=== PATIENT | female | born 1960 | race Caucasian/White ===

== ENCOUNTER → 2017-03-13 | Outpatient (CLI) | payer OTHER ==
[~2017-03-13] MED LIST: ASP81TEC; HCT25T; MTP100TCR; PNT40TEC; WARF4TAB; ZLP10T
--- NOTE | 2017-03-13 14:37 | Diagnostic Imaging Report ---
INDICATION: Cough and fever. PA and lateral chest. FINDINGS: Heart size and pulmonary vascularity are normal. Lungs are clear. There are no effusions or pneumothoraces. IMPRESSION: Negative chest. Dictated by: Dictated on workstation # [id number]
== END ==
LOC: RAD 14:04
PROVIDERS: ATTEND Internal Medicine
DX: J18.9 Pneumonia, unspecified organism (principal)
CPT/HCPCS: 71020

== ENCOUNTER → 2017-09-03 | Outpatient (CLI) | payer OTHER | LOC: RAD 10:10 | PROVIDERS: ATTEND Obstetrics & Gynecology | DX: Z12.31 Encounter for screening mammogram for malignant neoplasm of breast (principal) | CPT/HCPCS: 77067 ==

== ENCOUNTER → 2017-12-01 | Outpatient (CLI) | payer OTHER | LOC: CARD 08:23 | PROVIDERS: ATTEND Internal Medicine | DX: R00.2 Palpitations (principal) | CPT/HCPCS: 93225; 93226 ==

== ENCOUNTER 2018-04-06 13:01 | Outpatient (RCR) | payer OTHER | END 2018-04-27 12:52 | disposition home or self-care (01) | PROVIDERS: ATTEND Orthopaedic Surgery | DX: M75.02 Adhesive capsulitis of left shoulder (principal) ==

== ENCOUNTER → 2018-10-29 | Outpatient (CLI) | payer OTHER | LOC: RAD 11:19 | PROVIDERS: ATTEND Obstetrics & Gynecology | DX: Z12.31 Encounter for screening mammogram for malignant neoplasm of breast (principal) | CPT/HCPCS: 77067 ==

== ENCOUNTER → 2018-12-04 | Outpatient (CLI) | payer OTHER ==
--- NOTE | 2018-12-04 09:31 | Diagnostic Imaging Report ---
PROCEDURE: US Gallbladder. TECHNIQUE: Multiple Real-time grayscale images were obtained over the right upper quadrant in various projections. INDICATION: Right upper quadrant pain. FINDINGS: The liver is normal in size at 14.4 cm. No discrete liver mass is identified. The gallbladder is without stones or sludge. No wall thickening or biliary ductal dilatation is seen. The pancreas is unremarkable. The right kidney is unremarkable. There is no ascites. IMPRESSION: Unremarkable gallbladder ultrasound. Dictated by: Dictated on workstation # [id number]
== END ==
LOC: RAD 08:08
PROVIDERS: ATTEND Surgery
DX: R10.11 Right upper quadrant pain (principal)
CPT/HCPCS: 76705

== ENCOUNTER 2018-12-24 05:51 | Outpatient (CLI) | payer OTHER ==
[~2018-12-24] VITALS: Ht 160 cm; Wt 73.5 kg
[2018-12-24] MEDS ORDERED: WARF4TAB70 PO (12:12)
[2018-12-24] MEDS ORDERED: METO-395 PO (12:12)
[2018-12-24] MEDS ORDERED: LEVO50TA6 PO (12:12)
[2018-12-24] MEDS ORDERED: HYDR25TA4 PO (12:12)
[2018-12-24] MEDS ORDERED: ZOLP10TA5 PO (12:12)
[2018-12-24] MEDS ORDERED: PANT40TA3 PO (12:12)
[2018-12-24] MEDS ORDERED: DESV50TA PO (12:12)
== END 2018-12-24 12:15 | disposition home or self-care (01) ==
LOC: PREOP 05:51
PROVIDERS: ATTEND Surgery
DX: Z01.818 Encounter for other preprocedural examination (principal)
CPT/HCPCS: 87081

== ENCOUNTER 2018-12-31 08:00 | Day surgery (SDC) | payer OTHER ==
[~2018-12-31] VITALS: Ht 160 cm; Wt 73.5 kg
[2018-12-31 08:00] VITALS: BP 116/78
[~2018-12-31 08:00] MED LIST changes: +DESV50TA PO; +HYDR25TA4 PO; +LEVO50TA6 PO; +METO-395 PO; +PANT40TA3 PO; +WARF4TAB70 PO; +ZOLP10TA5 PO
--- OUTSIDE RECORDS SUMMARY | 2018-12-31 08:07 | XMS REPORT | Clinical Summary ---
Author Author [facility] Address Unknown Phone Unavailable Care Team Providers Care Ship Pilot Dispatcher Name Role Phone Christiano Shell MD Unavailable Antonio Correa MD PCP Kayley Caicedo RN Unavailable Unavailable Jovanni Mar MD Unavailable Delia Chino MD Unavailable Marilyn Smith RN Unavailable Unavailable Source Comments Some departments are not documenting in the electronic medical record. If you do not see the information that you expected, contact Release of Information in the Health Information Management department at [phone] for further assistance in locating additional records.[facility] Allergies No Known Allergies Medications End Date Status Medication Sig Dispensed Refills Start Date Active pantoprazole DR Take 40 mg by 0 (PROTONIX) 40 mg tablet mouth daily. Active desvenlafaxine(+) Take 50 mg by 0 (PRISTIQ) 50 mg tablet mouth at bedtime daily. Active warfarin (COUMADIN) 4 mg Take 4 mg by 0 tablet mouth at bedtime daily. Active zolpidem (AMBIEN) 10 mg Take 10 mg by 0 tablet mouth at bedtime as needed for Sleep. Active metoprolol XL (TOPROL XL) Take 150 mg 0 100 mg tablet by mouth at bedtime daily. Active metroNIDAZOLE (FLAGYL) 2 tablets PO 6 Tab 0 500 mg tabletIndications: at 1 pm, 3 pm 6 Diverticulitis of and 11 pm the intestine without day prior to perforation or abscess surgery with bleeding, unspecified part of intestinal tract Active neomycin 500 mg 2 tablets PO 6 Tab 0 tabletIndications: at 1 pm, 3 pm 6 Diverticulitis of and 11 pm the intestine without day prior to perforation or abscess surgery with bleeding, unspecified part of intestinal tract Active enoxaparin (LOVENOX) 60 Inject 1 0 mg syrg mg/kg under the skin twice daily. Active HYDROcodone/acetaminophen Take 1 Tab by 40 Tab 0 (NORCO) 5-325 mg tablet mouth every 6 6 hours as needed for Pain Earliest Fill Date: 07/19/16 Active senna (SENNA) 8.6 mg Take 2 Tabs 90 Tab 3 tablet by mouth at 6 bedtime daily. Active polyethylene glycol 3350 Take 17 g by 527 g 0 (GLYCOLAX; MIRALAX) 17 mouth daily. 6 gram/dose powder Active Problems Problem Noted Date Diverticulosis 07/15/2016 Diverticulitis large intestine 07/15/2016 Hyperparathyroidism 04/04/2016 Family History Medical History Relation Name Comments Cancer Father Cancer-Colon Maternal Grandmother Cancer-Lung Maternal Grandmother Relation Name Status Comments Father Maternal Grandmother Social History Date Tobacco Use Types Packs/Day Years Used Never Smoker Smokeless Tobacco: Never Used Alcohol Use Drinks/Week oz/Week Comments Yes 1 Glasses of 0.6 rarely wine Sex Assigned at Date Recorded Not on file Industry Job Start Date Occupation Not on file Not on file Not on file Travel End Travel History Travel Start No recent travel history available. Last Filed Vital Signs Time Taken Vital Sign Reading 08/06/2016 1:05 PM CDT Blood Pressure 129/76 08/06/2016 1:05 PM CDT Pulse 64 08/06/2016 1:05 PM CDT Temperature 36.7 C (98 F) 08/06/2016 1:05 PM CDT Respiratory Rate 14 08/06/2016 1:05 PM CDT Oxygen Saturation 100% - Inhaled Oxygen - Concentration 08/06/2016 1:05 PM CDT Weight 74.7 kg (164 lb 9.6 oz) 08/06/2016 1:05 PM CDT Height 160 cm (5' 2.99") 08/06/2016 1:05 PM CDT Body Mass Index 29.16 Plan of Treatment Health Maintenance Due Date Last Done Comments HEPATITIS C SCREENING 1959 PHYSICAL (COMPREHENSIVE) 1966 EXAM HIV SCREENING 1974 DTAP/TDAP VACCINES (1 - 1977 Tdap) CERVICAL CANCER SCREENING 1989 BREAST CANCER SCREENING 1999 SHINGLES RECOMBINANT 2009 VACCINE (1 of 2) INFLUENZA VACCINE 06/17/2018 COLORECTAL CANCER 07/10/2026 07/10/2016 SCREENING Results Not on filefrom Last 3 Months Insurance Payer Benefit Subscriber ID Type Phone Address Plan / Group [employer] xxxxxxxxxxxx PPO OUT OF STATE Advance Directives Patient has advance care planning documents, and code status on file. For more information, please contact: [facility] [address] [place] [address] Date Inactivated Comments Code Status Date Activated 07/19/2016 4:04 PM Full Code 07/15/2016 4:45 PM Provider has discussed Code Status Yes w/Patient or Family?
--- OUTSIDE RECORDS SUMMARY | 2018-12-31 08:07 | XMS REPORT | Continuity of Care Document ---
Author Author [facility] Organization [facility] Address Unknown Phone Unavailable Allergies Active Description Code Type Severity Reaction Onset Reported/Identified Relationship to Patient Clinical Status Yes No Known Drug Allergies [id number] Drug Allergy Unknown N/A 06/23/2006 Medications There is no data. Problems Date Dx Coded Attending Type Code Diagnosis Diagnosed By 10/16/1251 GRISELDA GUZMAN DO Ot M75.02 ADHESIVE CAPSULITIS OF LEFT SHOULDER 02/09/2015 Ot 784.0 05/29/2015 EMELIA LEE DO Ot V76.12 06/19/2015 Ot V76.12 06/30/2015 Ot V76.12 06/30/2015 Ot V76.12 07/05/2015 Ot V76.12 07/21/2015 MARY TOLEDO DO Ot 724.5 07/21/2015 MARY TOLEDO DO Ot 789.04 08/11/2015 LESLIE MCKENZIE, ALAINA Mendez Ot 592.0 10/11/2015 Ot V76.12 10/11/2015 Ot 787.02 10/11/2015 Ot 789.04 10/11/2015 MARY TOLEDO DO Ot 789.01 10/11/2015 EMELIA LEE DO Ot 793.89 10/11/2015 EMELIA LEE DO Ot V76.12 10/11/2015 EMELIA LEE DO Ot 610.0 10/11/2015 Ot 784.0 10/11/2015 EMELIA LEE DO Ot V76.12 10/11/2015 MARY TLOEDO DO Ot 724.5 10/11/2015 MARY TOLEDO DO Ot 789.04 10/11/2015 LESLIE MCKENZIE, ALAINA Mendez Ot 592.0 11/01/2015 LESLIE MCKENZIE, ALAINA Mendez Ot R31.0 01/29/2016 Ot V76.12 01/29/2016 Ot 787.02 01/29/2016 Ot 789.04 01/29/2016 MARY TOLEDO DO Ot 789.01 01/29/2016 LEE EMELIA Geri Ot 793.89 01/29/2016 EMELIA LEE DO Ot V76.12 01/29/2016 EMELIA LEE DO Ot 610.0 01/29/2016 Ot 784.0 01/29/2016 LEE EMELIA PEREZ Ot V76.12 01/29/2016 TOLEDOMARY JACOME DO Ot 724.5 01/29/2016 MARY TOLEDO DO Ot 789.04 01/29/2016 LESLIE MCKENZIE, ALAINA Mendez Ot 592.0 01/29/2016 LESLIE MCKENZIE, ALAINA Mendez Ot R31.0 02/06/2016 Ot V76.12 02/06/2016 Ot 787.02 02/06/2016 Ot 789.04 02/06/2016 MARY TOLEDO DO Ot 789.01 02/06/2016 LEE EMELIA Geri Ot 793.89 02/06/2016 LEE EMELIA Geri Ot V76.12 02/06/2016 LEE EMELIA Geri Ot 610.0 02/06/2016 Ot 784.0 02/06/2016 LEENaomi PEREZ EMELIA Geri Ot V76.12 02/06/2016 MARY TOLEDO DO Ot 724.5 02/06/2016 MARY TOLEDO DO Ot 789.04 02/06/2016 LESLIE MCKENZIE, ALAINA Mendez Ot 592.0 02/06/2016 LESLIE MCKENZIE, ALAINA Mendez Ot R31.0 02/12/2016 MARY TOLEDO DO Ot E83.52 03/13/2017 Ot 787.02 NAUSEA ALONE 03/13/2017 Ot 789.04 ABDOMINAL PAIN, LEFT LOWER QUADRANT 03/13/2017 MARY TOLEDO DO Ot 789.01 ABDOMINAL PAIN, RIGHT UPPER QUADRANT 03/13/2017 EMELIA LEE DO Ot 793.89 OTH (ABN) FINDINGS ON RADIOLOGICAL EXAMI 03/13/2017 EMELIA LEE DO Ot V76.12 OTH SCREEN MAMMO-MALIGN NEOPLASM OF SAW 03/13/2017 EMELIA LEE DO Ot 610.0 SOLITARY CYST OF BREAST 03/13/2017 Ot 784.0 HEADACHE 03/13/2017 EMELIA LEE DO Ot V76.12 OTH SCREEN MAMMO-MALIGN NEOPLASM OF SAW 03/13/2017 MARY TOLEDO DO Ot 724.5 BACKACHE NOS 03/13/2017 MARY TOLEDO DO Ot 789.04 ABDOMINAL PAIN, LEFT LOWER QUADRANT 03/13/2017 ALAINA NELSON MD Ot 592.0 CALCULUS OF KIDNEY 03/13/2017 ALAINA NELSON MD Ot R31.0 GROSS HEMATURIA 03/13/2017 MARY TOLEDO DO Ot E83.52 HYPERCALCEMIA 03/13/2017 MARY TOLEDO DO Ot D35.1 BENIGN NEOPLASM OF PARATHYROID GLAND 03/18/2017 MARY TOLEDO DO Ot J18.9 PNEUMONIA, UNSPECIFIED ORGANISM 04/09/2017 MARY TOLEDO DO, Ot J18.9 PNEUMONIA, UNSPECIFIED ORGANISM 03/11/2018 MARY TOLEDO DO Ot R00.2 PALPITATIONS 03/16/2018 GRISELDA GUZMAN DO Ot M75.02 ADHESIVE CAPSULITIS OF LEFT SHOULDER 04/27/2018 GRISELDA GUZMAN DO Ot M75.02 ADHESIVE CAPSULITIS OF LEFT SHOULDER 09/28/2018 MARY TOLEDO DO Ot 789.01 ABDOMINAL PAIN, RIGHT UPPER QUADRANT 09/28/2018 EMELIA LEE DO Ot 793.89 OTH (ABN) FINDINGS ON RADIOLOGICAL EXAMI 09/28/2018 EMELIA LEE DO Ot V76.12 OTH SCREEN MAMMO-MALIGN NEOPLASM OF SAW 09/28/2018 EMELIA LEE DO Ot 610.0 SOLITARY CYST OF BREAST 09/28/2018 Ot 784.0 HEADACHE 09/28/2018 EMELIA LEE DO Ot V76.12 OTH SCREEN MAMMO-MALIGN NEOPLASM OF SAW 09/28/2018 MARY TOLEDO DO Ot 724.5 BACKACHE NOS 09/28/2018 MARY TOLEDO DO Ot 789.04 ABDOMINAL PAIN, LEFT LOWER QUADRANT 09/28/2018 ALAINA NELSON MD Ot 592.0 CALCULUS OF KIDNEY 09/28/2018 ALAINA NELSON MD Ot R31.0 GROSS HEMATURIA 09/28/2018 MARY TOLEDO DO Ot E83.52 HYPERCALCEMIA 09/28/2018 MARY TOLEDO DO Ot D35.1 BENIGN NEOPLASM OF PARATHYROID GLAND 09/28/2018 MARY TOLEDO DO Ot J18.9 PNEUMONIA, UNSPECIFIED ORGANISM 09/28/2018 EMELIA LEE DO Ot Z12.31 ENCNTR SCREEN MAMMOGRAM FOR MALIGNANT NE 09/28/2018 MARY TOLEDO DO Ot R00.2 PALPITATIONS 10/30/2018 EMELIA LEE DO Ot Z12.31 ENCNTR SCREEN MAMMOGRAM FOR MALIGNANT NE 11/04/2018 EMELIA LEE DO, Ot Z12.31 ENCNTR SCREEN MAMMOGRAM FOR MALIGNANT NE 12/07/2018 KAELA ARMIJO MD Ot R10.11 RIGHT UPPER QUADRANT PAIN 12/14/2018 KALEA ARMIJO MD, Ot R10.11 RIGHT UPPER QUADRANT PAIN 12/24/2018 KAELA ARMIJO MD, Ot Z01.818 ENCOUNTER FOR OTHER PREPROCEDURAL EXAMIN 12/30/2018 KAELA ARMIJO MD, Ot Z01.818 ENCOUNTER FOR OTHER PREPROCEDURAL EXAMIN Procedures There is no data. Results Test Result Range Methicillin resistant Staphylococcus aureus (MRSA) screening culture - 10:00 Methicillin resistant Staphylococcus aureus (MRSA) screening culture NEG NRG Encounters ACCT No. Visit Date/Time Discharge Status Pt. Type Provider Facility Loc./Unit Complaint [id number] 12/24/2018 05:51:00 12/24/2018 12:15:00 DIS Outpatient KAELA ARMIJO MD [facility] PREOP BILIARY DYSKINESIA [id number] 12/11/2018 11:34:00 12/11/2018 23:59:59 CLS Outpatient KAELA ARMIJO MD [facility] CARD RUQ PAIN [id number] 12/04/2018 08:08:00 12/04/2018 23:59:59 CLS Outpatient KAELA ARMIJO MD [facility] RAD RUQ PAIN [id number] 10/29/2018 11:19:00 10/29/2018 23:59:59 CLS Outpatient EMELIA LEE DO [facility] RAD SCREENING [id number] 08/26/2018 15:04:00 08/26/2018 23:59:59 CLS Preadmit EMELIA LEE DO [facility] RAD SCREENING [id number] 04/06/2018 13:01:00 04/27/2018 12:52:00 DIS Outpatient GRISELDA GUZMAN DO [facility] REHAB ADHESIVE CAPSULITIS LT SHOUDER [id number] 12/01/2017 08:23:00 12/01/2017 23:59:59 CLS Outpatient MARY TOLEDO DO [facility] CARD R00.2 [id number] 09/03/2017 10:10:00 09/03/2017 23:59:59 CLS Outpatient EMELIA LEE DO [facility] RAD SCREENING [id number] 06/10/2017 11:15:00 06/10/2017 23:59:59 CLS Preadmit DILLAN LEE DOA [facility] RAD SCREENING [id number] 03/13/2017 14:04:00 03/13/2017 23:59:59 CLS Outpatient MARY TOLEDO DO [facility] RAD J18.3 [id number] 02/14/2016 14:58:00 02/14/2016 23:59:59 CLS Outpatient MARY TOLEDO DO [facility] RAD PARATHYROID ADEMONMA [id number] 02/06/2016 12:26:00 02/06/2016 23:59:59 CLS Outpatient MARY TOLEDO DO [facility] CARD HYPERCALCEMIA [id number] 10/11/2015 12:38:00 10/11/2015 23:59:59 CLS Outpatient ALAINA NELSON MD [facility] RAD GROSS HEMATURIA [id number] 07/28/2015 12:48:00 07/28/2015 23:59:59 CLS Outpatient ALAINA NELSON MD [facility] RAD STONE [id number] 07/07/2015 13:37:00 07/07/2015 23:59:59 CLS Outpatient MARY TOLEDO DO [facility] RAD ABD PAIN [id number] 05/12/2015 10:15:00 05/12/2015 23:59:59 CLS Outpatient EMELIA LEE DO [facility] RAD SCREENING [id number] 11/15/2013 13:12:00 11/15/2013 23:59:59 CLS Outpatient EMELIA LEE DO [facility] RAD ABN MAMMO [id number] 11/12/2013 08:12:00 11/12/2013 23:59:59 CLS Outpatient EMELIA LEE DO [facility] RAD SCREENING [id number] 08/23/2013 15:11:00 08/23/2013 23:59:59 CLS Outpatient MARY TOLEDO DO [facility] RAD RUQ PAIN [id number] 12/31/2018 08:00:00 PEN Preadmit KAELA ARMIJO MD [facility] SDC BILIARY DYSKINESIA [id number] 10/11/2015 12:38:00 Document Registration [id number] 06/19/2015 12:09:00 Document Registration [id number] 06/19/2015 12:09:00 Document Registration [id number] 01/19/2015 10:29:00 Document Registration [id number] 05/12/2012 14:25:00 Document Registration [id number] 11/01/2010 08:49:00 Document Registration
[2018-12-31] MEDS ORDERED: BUP/EPI 0.5% 1:200,000 (SENSORCAINE) 30 ML VIAL ONE (08:12)
[2018-12-31] MEDS ORDERED: ceFAZolin 2 GM IV Premixed 50 ML IV ONE (08:15)
[2018-12-31] MEDS: LACTATED RINGERS 1,000 ML IV PRN ×2 (08:25→10:34)
[2018-12-31] MEDS ORDERED: DEXAMETHASONE 10 MG/ML (DECADRON) 1 ML VIAL ONE (08:26)
[2018-12-31] MEDS ORDERED: SEVOFLURANE (ULTANE) 15 ML INHAL SOLN ONE ×4 (08:26→10:15)
[2018-12-31] MEDS ORDERED: ONDANSETRON 4 MG/2 ML (SDV) Z0FRAN ONE (08:26)
[2018-12-31] MEDS ORDERED: proPOfol 200 MG/20 ML (DIPRIVAN) VIAL IV ONE (08:26)
[2018-12-31] MEDS ORDERED: LACTATED RINGERS 1,000 ML IV ONE (08:26)
[2018-12-31] MEDS ORDERED: LIDOCAINE PF 2% 5 ML (XYLOCAINE) VIAL ONE (08:26)
--- NOTE | 2018-12-31 08:26 | Progress Note-Pre Operative ---
Pre-Operative Progress Note H&P Reviewed The H&P was reviewed, patient examined and no changes noted. Date Seen by Provider: Dec 31, 2018 Time Seen by Provider: 08:25 Date H&P Reviewed: Dec 31, 2018 Time H&P Reviewed: 08:20 Pre-Operative Diagnosis: Symptomatic Biliary Dyskinesia VANE HARO APRN Dec 31, 2018 08:26
[2018-12-31] MEDS ORDERED: fentaNYL INJECTION 100 MCG/2 ML AMP ONE (08:27)
[2018-12-31] MEDS ORDERED: MIDAZOLAM 2 MG/2 ML (VERSED) VIAL ONE (08:27)
[2018-12-31] MEDS ORDERED: HYDR-3816 PO (08:29)
[2018-12-31] MEDS ORDERED: morphine INJ 10 MG/ML 1ML (SYR OR VIAL) IVP PRN (08:30)
[2018-12-31] MEDS ORDERED: CATHETER FLUSH 10 ML SYR IV PRN (08:30)
[2018-12-31] MEDS ORDERED: HYDROcodone/APAP 5 MG/325 MG (LORTAB) TAB PO ONE (08:30)
[2018-12-31] MEDS ORDERED: ONDANSETRON 4 MG/2 ML (SDV) Z0FRAN IVP PRN ×2 (08:30→11:00)
[2018-12-31] MEDS ORDERED: ACETAMINOPHEN 325 MG TABLET PO PRN (08:30)
--- NOTE | 2018-12-31 08:30 | Discharge Inst-Surgical ---
D/C Lap Instructions-KIDO New, Converted, or Re-Newed RX: RX on Chart Follow Up Appt in 2 weeks Activity as tolerated No driving for 24 hours No [address] while on pain medications Incentive Spirometry use every 2 hours while awake Regular Diet Symptoms to Report: Fever over 101 degree F, Nausea/Vomiting Infection Signs and Symptoms to report: Increased redness, Foul odor of wound, Increased drainage Bathing instructions: May shower Operative Area Clean/Dry; Keep incision clean/dry If any problems/questions: Contact your physician or go to Emergency Room VANE HARO APRN Dec 31, 2018 08:29
[2018-12-31 08:50] LABS: BASOPHILS % (AUTO) 0 % (0-10); EOSINOPHILS # (AUTO) 0.1 10^3/uL (0.0-0.3); EOSINOPHILS % (AUTO) 1 % (0-10); HEMATOCRIT 42 % (35-52); HEMOGLOBIN 13.5 G/DL (11.5-16.0); LYMPHOCYTES # (AUTO) 2.1 X 10^3 (1.0-4.0); LYMPHOCYTES % (AUTO) 43 % (12-44); MEAN CORPUSCULAR HEMOGLOBIN 27 PG (25-34); MEAN CORPUSCULAR HGB CONC 32 G/DL (32-36); MEAN CORPUSCULAR VOLUME 85 FL (80-99); MEAN PLATELET VOLUME 9.4 FL (7.4-10.4); MONOCYTES # (AUTO) 0.5 X 10^3 (0.0-1.0); MONOCYTES % (AUTO) 10 % (0-12); NEUTROPHILS # (AUTO) 2.2 X 10^3 (1.8-7.8); NEUTROPHILS % (AUTO) 45 % (42-75); PLATELET COUNT 194 10^3/uL (130-400); RED CELL DISTRIBUTION WIDTH 15.2 % (10.0-14.5); WHITE BLOOD COUNT 4.9 10^3/uL (4.3-11.0)
[2018-12-31 08:59] LABS: INR 1.2 (0.8-1.4); PROTHROMBIN TIME PATIENT 15.2 SEC (12.2-14.7)
[2018-12-31] MEDS ORDERED: ENOX80DI12 SQ (09:00)
[2018-12-31] MEDS ORDERED: ROCURONIUM 10 MG/ML 5 ML SYRINGE IV ONE (10:15)
[2018-12-31] MEDS ORDERED: GLYCOPYRROLATE 0.2 MG/ML (ROBINUL) 2 ML VIAL ONE (10:16)
[2018-12-31] MEDS ORDERED: NEOSTIGMINE 1 MG/ML 5 ML SYRINGE ONE (10:16)
--- NOTE | 2018-12-31 10:26 | Progress Note-Post Operative ---
Post-Operative Progess Note Surgeon (s)/Appliance Parts Counter Clerk (s) Surgeon KAELA ARMIJO MD Appliance Parts Counter Clerk: becca lamar RESPIRATORY SUPERVISOR Pre-Operative Diagnosis Symptomatic Biliary Dyskinesia Post-Operative Diagnosis same Procedure & Operative Findings Date of Procedure 12/31/18 Procedure Performed/Findings laparoscopic cholecystectomy Anesthesia Type GET Estimated Blood Loss Estimated blood loss (mL): minimal Specimens/Packing Specimens Removed gallbladder KAELA ARMIJO MD Dec 31, 2018 10:26
[2018-12-31] MEDS ORDERED: HYDROmorphone 2 MG/ML VIAL (DILAUDID) IV ONE (11:00)
[2018-12-31] MEDS ORDERED: morphine INJ 10 MG/ML 1ML (SYR OR VIAL) IVP ONE (11:00)
[2018-12-31 11:25] VITALS: BP 114/69
[2018-12-31] MEDS ORDERED: ACET-789 PO (11:53)
[2018-12-31] MEDS ORDERED: HYDROcodone/APAP 5 MG/325 MG (LORTAB) TAB ONE (11:54)
[2018-12-31 11:55] VITALS: BP 110/69
[2018-12-31 12:25] VITALS: BP 113/69
--- NOTE | 2018-12-31 12:36 | OPERATIVE REPORT ---
DATE OF SERVICE: 12/31/2018 ATTENDING PRIMARY CARE PHYSICIAN: Dr. Correa. PREOPERATIVE DIAGNOSIS: Symptomatic biliary dyskinesia. POSTOPERATIVE DIAGNOSIS: Symptomatic biliary dyskinesia. PROCEDURE: Laparoscopic cholecystectomy. SURGEON: Kaela Armijo MD RADIO AERIAL INSTALLER: Kevin Veronica APRN. ANESTHESIA: General endotracheal. ESTIMATED BLOOD LOSS: Minimal. FINDINGS: Slightly dilated gallbladder with cholesterolosis within the gallbladder. DISPOSITION: The patient tolerated the procedure well. INDICATIONS: The patient is a 58-year-old female with recurrent bouts of pain in the right upper abdominal quadrant with associated nausea and vomiting for several years. She reports that this has become increasingly significant in the past year. She reports the pain with radiation towards the back with intermittent bouts of nausea and vomiting. She does not report any classic symptoms of heartburn or acid indigestion and was placed on Protonix and she states that this did not help her symptoms. She had an ultrasound performed, which did not show any gallstones and HIDA scan was performed and she did have significant symptoms during administration of a Kinevac analogue with pain in the right upper abdominal quadrant with nausea and vomiting consistent with a symptomatic biliary dyskinesia. DESCRIPTION OF PROCEDURE: The patient was brought to the operating room, laid supine on the table. After adequate IV pain and sedative medications and general endotracheal intubation, the abdomen was prepped and draped in standard surgical fashion. A 0.5% Marcaine with epinephrine was then used to anesthetize the overlying skin in the left upper abdominal quadrant. A small transverse skin incision made using 15 blade. An 0 silk suture was applied to the medial aspect of the incision for retraction and a Veress needle inserted with opening pressure of 0 mmHg and the abdomen was then insufflated to 15 mmHg pressure. The Veress needle removed and a 5 mm Xcel trocar placed followed by a 5 mm 45-degree angle laparoscope visualizing the peritoneal cavity. A 4-quadrant abdominal exploration was performed. There is a slight gallbladder dilatation. No signs of inflammation. What was visualized of the liver, small bowel, stomach, omentum appeared normal. Under direct visualization, we then proceeded to place a supraumbilical 10 mm port after the skin and peritoneal lining were anesthetized using 0.5 Marcaine with epinephrine and a transverse skin incision made using a 15 blade. In a similar manner, a right upper abdominal quadrant 5 mm port was placed. The patient was then placed in reverse Trendelenburg position as well as plane right side up, left side down. The fundus of the gallbladder was then retracted anteriorly and superiorly. The hepatoduodenal ligament was then opened using blunt dissection as well as electrocautery using hook instrument. The entire critical view of safety was identified including the triangle of Calot as well as the cystic duct and artery as the only two structures going into the gallbladder as well as the cystic plate behind the proximal gallbladder. A timeout was then taken and the cystic duct and artery were then clipped proximally, distally and cut with EndoShears. The gallbladder was then dissected off the liver bed using cautery on hook instrumentation and the hook instrument with visualization of good hemostasis as well as no leaking ducts of Luschka. The gallbladder was removed through the 10 mm port site using EndoCatch bag. The 10 mm port site fascia and peritoneum were then closed under direct visualization using a Chandrakant-Kaylie device and 0 Vicryl suture. The abdomen was desufflated and remaining ports removed. All skin incisions were closed using 4-0 Monocryl running subcuticular sutures. Wounds were then cleaned and covered with Dermabond. The patient tolerated the procedure well. We will start IV and oral pain medication as well as a clear liquid diet. Once she is tolerating clears, has good pain control with oral pain medication and is ambulating well, we will discharge her home. She will be instructed to do no heavy lifting or exertion for at least 2 weeks. Job ID: [id number] DocumentID: [id number] Dictated Date: 12/31/2018 10:39:59 Physician Executive Date: 12/31/2018 12:36:06 Dictated By: KAELA ARMIJO MD
--- NOTE | 2018-12-31 13:38 | Anesthesia-General Post-Op ---
General Patient Condition Mental Status/LOC: Same as Preop Cardiovascular: Satisfactory Nausea/Vomiting: Absent Respiratory: Satisfactory Pain: Controlled Complications: Absent Post Op Complications Complications None Follow Up Care/Instructions Patient Instructions None needed. Anesthesia/Patient Condition Patient Condition Patient is doing well, no complaints, stable vital signs, no apparent adverse anesthesia problems. No complications reported per nursing. MADAN ROSARIO CRNA Dec 31, 2018 13:38
== END 2018-12-31 12:55 | disposition home or self-care (01) ==
LOC: SDC 08:00
PROVIDERS: ATTEND Surgery
DX: K81.1 Chronic cholecystitis (principal); I10 Essential (primary) hypertension; K21.9 Gastro-esophageal reflux disease without esophagitis; E03.9 Hypothyroidism, unspecified; D68.59 Other primary thrombophilia; Z79.01 Long term (current) use of anticoagulants; Z79.899 Other long term (current) drug therapy
CPT/HCPCS: 36415; 85025; 85610; 88304; 94664

== ENCOUNTER → 2019-11-08 | Outpatient (CLI) | payer BC, OTHER ==
[~2019-11-08] MED LIST changes: +ACET-789 PO; +ENOX80DI12 SQ; +HYDR-3816 PO
--- NOTE | 2019-11-09 11:18 | Diagnostic Imaging Report ---
INDICATION: Routine screening. Comparison is made with prior mammogram from 10/29/2018 and 09/03/2017. 2-D and 3-D bilateral screening mammography was performed with CAD. Both breasts are heterogeneously dense, limiting the sensitivity of mammography. Benign calcifications are noted in both breasts. There are circumscribed nodular densities in both breasts which appear to be stable. No dominant mass or malignant appearing microcalcifications are seen. Axillae are unremarkable. IMPRESSION: BI-RADS Category 2 No mammographic features suspicious for malignancy are identified. ACR BI-RADS Category 2: Benign findings. Result letter will be mailed to the patient. Note: At least 10% of breast cancer is not imaged by mammography. Dictated by: Dictated on workstation # [id number]
== END ==
LOC: RAD 15:50
PROVIDERS: ATTEND Nurse Practitioner Family
DX: Z12.31 Encounter for screening mammogram for malignant neoplasm of breast (principal)
CPT/HCPCS: 77067

== ENCOUNTER → 2020-03-30 | Outpatient (CLI) | payer BC ==
[~2020-03-30] MED LIST changes: +HYDR-34 PO; -HYDR-3816 PO; -METO-395 PO; +MTP100TCR PO
--- NOTE | 2020-03-30 13:00 | Diagnostic Imaging Report ---
PROCEDURE: MRI left joint lower extremity without contrast. TECHNIQUE: Multiplanar, multisequence non contrast-enhanced MRI of the left lower extremity was accomplished. INDICATION: Left ankle pain laterally. COMPARISON: None FINDINGS: No acute fracture or dislocation is seen in the left ankle. Alignment appears normal. No joint effusion is seen. There is mild degenerative change in the midfoot. The anterior and posterior syndesmotic ligaments are intact. The anterior talofibular ligament appears to be intact, better seen on the coronal images. The calcaneofibular ligament appears mildly irregular proximally at the fibular attachment. The posterior talofibular ligament is intact. The deep fibers of the deltoid ligament are intact. The spring ligament is intact. The plantar fascia is not thickened. The sinus tarsi demonstrates normal fatty signal. The Achilles tendon is normal in appearance. The peroneal tendons demonstrate increased fluid in the tendon sheath with possible short segment longitudinal split tear of the peroneus brevis. The flexor tendons appear intact. The extensor tendons are intact. The musculature about the ankle demonstrates no focal edema or atrophy. No masses or fluid collections are seen. The tarsal tunnel is unremarkable. IMPRESSION: 1. Mild peroneal tenosynovitis with suspected short segment longitudinal split tear of the peroneus brevis tendon. 2. Mild irregularity at the proximal attachment of the calcaneofibular ligament, could represent partial tear. Dictated by: Dictated on workstation # [id number]
== END ==
LOC: RAD 11:40
PROVIDERS: ATTEND Nurse Practitioner
DX: M84.372A Stress fracture, left ankle, initial encounter for fracture (principal); M65.872 Other synovitis and tenosynovitis, left ankle and foot
CPT/HCPCS: 73721

== ENCOUNTER → 2021-02-09 | Outpatient (CLI) | payer BC ==
[~2021-02-09] MED LIST changes: -PANT40TA3 PO; +PANT40TA52 PO; +WARF4TAB3 PO; -WARF4TAB70 PO
--- NOTE | 2021-02-11 19:06 | Diagnostic Imaging Report ---
INDICATION: Screening. At this time there are no current complaints. EXAMINATION: Digital mammogram bilateral screening with CAD. 3D tomographic images were obtained and reviewed. The current study was also evaluated with a Computer Aided Detection (CAD) system. COMPARISON: This study was compared to the prior exams of 11/08/2019, 10/29/2018 and 09/03/2017. FINDINGS: The fibroglandular tissue in both breasts heterogeneously dense. This does limit the sensitivity of this exam. The benign-appearing nodular asymmetries in both breasts, seen previously, are again evident and do not appear to have changed adversely. There is no primary or secondary sign of malignancy noted. IMPRESSION: There is no evidence for malignancy. ACR BI-RADS Category 1: Negative. Result letter will be mailed to the patient. Note: At least 10% of breast cancer is not imaged by mammography. Dictated by: Dictated on workstation # [id number]
== END ==
LOC: RAD 11:15
PROVIDERS: ATTEND Internal Medicine
DX: Z12.31 Encounter for screening mammogram for malignant neoplasm of breast (principal)
CPT/HCPCS: 77063; 77067

== ENCOUNTER → 2022-10-22 | Outpatient (CLI) | payer BC ==
--- NOTE | 2022-10-22 16:42 | Diagnostic Imaging Report ---
INDICATION: Routine screening. COMPARISON: 02/09/2021 and 11/08/2019. TECHNIQUE: 2D and 3D bilateral screening mammography was performed with CAD. FINDINGS: Both breasts are heterogeneously dense, limiting the sensitivity of mammography. Multiple benign-appearing nodular densities in the left breast appear stable. There is a nodular density in the outer right breast at posterior depth, best seen on the CC view, which appears more prominent than on the prior exams. This appears to be projected just above the nipple line on the MLO view. Additional views are recommended. There are scattered benign calcifications in both breasts. No malignant appearing microcalcifications are seen. The axillae are unremarkable. IMPRESSION: Right breast density. Additional views are recommended for further evaluation. ACR BI-RADS Category 0: Incomplete. (Needs additional imaging evaluation). Result letter will be mailed to the patient. Note: At least 10% of breast cancer is not imaged by mammography. Dictated by: Dictated on workstation # [id number]
== END ==
LOC: RAD 13:00
PROVIDERS: ATTEND Surgery
DX: Z12.31 Encounter for screening mammogram for malignant neoplasm of breast (principal)
CPT/HCPCS: 77063; 77067

== ENCOUNTER → 2022-10-24 | Outpatient (CLI) | payer BC ==
--- NOTE | 2022-10-24 14:21 | Diagnostic Imaging Report ---
Indication: Right breast density. Patient presents for additional views. Correlation is made with screening study from 10/22/2022. Unilateral right 2-D and 3-D diagnostic mammography was performed. This includes spot compression CC and ML views as well as conventional 90 degree lateral views. Additional views show some persistent slightly nodular density in the outer right breast approximately 8 cm from the nipple. There are scattered benign calcifications present. IMPRESSION: BI-RADS 0 Persistent nodular density outer right breast posterior depth approximately 8 cm from the nipple. Further evaluation of this area with ultrasound is recommended and will be performed today. ACR BI-RADS Category 0: Incomplete. (Needs additional imaging evaluation). Result letter will be mailed to the patient. Note: At least 10% of breast cancer is not imaged by mammography. Dictated by: Dictated on workstation # [id number]
--- NOTE | 2022-10-24 16:10 | Diagnostic Imaging Report ---
INDICATION: Right breast density. Correlation is made with diagnostic mammogram earlier same day and screening mammogram from 10/22/2022. Sonographic interrogation of the outer right breast was performed. There are 2 cysts adjacent to one another at the 9 o'clock location, 7 to 8 cm from the nipple. Each measures approximate 4 mm in diameter. This likely accounts for the density noted mammographically. No internal vascularity is seen. IMPRESSION: There are 2 tiny cysts adjacent to one another at the 9 o'clock location right breast, likely accounting for the mammographic density. Even so, followup right mammogram for right breast ultrasound and 6 months is recommended recommended to show continued stability. Dictated by: Dictated on workstation # [id number]
== END ==
LOC: RAD 12:28
PROVIDERS: ATTEND Surgery
DX: N60.01 Solitary cyst of right breast (principal)
CPT/HCPCS: 76642; 77065; G0279

== ENCOUNTER → 2023-04-30 | Outpatient (CLI) | payer BC ==
--- NOTE | 2023-04-30 13:37 | Diagnostic Imaging Report ---
Indication: Six-month follow-up right breast nodule. Correlation is made with prior mammograms 10/22/2022 and 02/09/2021. Unilateral right 2-D and 3-D diagnostic mammography was performed. The right breast is heterogeneously dense, limiting the sensitivity of mammography. The area of nodularity in the outer right breast is stable. No new mass is detected. There are scattered benign calcifications. No malignant-appearing microcalcifications are seen. Right axilla is unremarkable. IMPRESSION: BI-RADS 0 Stable right mammogram and right breast nodularity. Even so, follow-up ultrasound is recommended and will be performed today. ACR BI-RADS Category 0: Incomplete. (Needs additional imaging evaluation). Result letter will be mailed to the patient. Note: At least 10% of breast cancer is not imaged by mammography. Dictated by: Dictated on workstation # [id number]
--- NOTE | 2023-04-30 23:28 | Diagnostic Imaging Report ---
INDICATION: Six-month follow-up of right breast nodules. COMPARISON: Correlation is made with prior ultrasound from 10/24/2022. EXAMINATION: Sonographic interrogation of the outer right breast was performed. FINDINGS: There are two cystic nodules in the 9:00 location, 7-8 cm from the nipple. These appear to be stable in size. Largest measures approximately 4 mm x 3 mm. Smaller adjacent cyst measures 3 mm x 3 mm. No new abnormality is seen. No internal vascularity is seen. IMPRESSION: Stable cyst at the 9:00 location in the right breast when compared to exam six months earlier. Additional mammographic and sonographic follow-up in six months is recommended to show continued stability. ACR BI-RADS Category 3: Probably benign findings. Result letter will be mailed to the patient. Note: At least 10% of breast cancer is not imaged by mammography. Dictated by: Dictated on workstation # [id number]
== END ==
LOC: RAD 13:15
PROVIDERS: ATTEND Surgery
DX: N60.01 Solitary cyst of right breast (principal)
CPT/HCPCS: 76642; 77065; G0279